=== PATIENT | female | born 1980 | race African-American/Black ===

== ENCOUNTER 2024-11-27 06:21 | Inpatient (IN) | payer OTHER, SELFPAY ==
[2024-11-26 20:27] VITALS: BP 147/89
[2024-11-26 20:44] LABS: % Basophils 0.3 % (0-2); % Eosinophils 4.7 % (0-6); % Immature Granulocytes 0.6 % (0-0.5); % Lymphocytes 10.1 % (20.5-51.1); % Monocytes 8.7 % (1.7-9.3); % Neutrophils 75.6 % (42.2-75.2); Absolute Eosinophils 0.3 10^3/uL (0-0.7); Absolute Lymphocytes 0.7 10^3/uL (1.2-3.4); Absolute Monocytes 0.6 10^3/uL (0.1-0.6); Absolute Neutrophils 5.5 10^3/uL (1.4-6.5); Hemoglobin 9.6 g/dL (12.0-16.0); Mean Corpuscular Hgb 25.9 pg (27.0-31.0); Mean Corpuscular Volume 83.6 fL (81.0-99.0); Mean Platelet Volume 9.8 fL (7.4-10.4); Nucleated Red Blood Cells % 0 %; Platelet Count 388 10^3/uL (130-400); Red Blood Cell Count 3.71 10^6/uL (4.20-5.40); Red Cell Dist. Width 18.9 % (11.5-14.5); White Blood Cell Count 7.2 10^3/uL (4.8-10.8)
[2024-11-26 20:56] LABS: INR 1.24; PT 16.1 Sec (11.4-14.6)
[2024-11-26 20:57] LABS: APTT 35.7 Sec (23.4-35.0)
[2024-11-26 20:59] LABS: ALT (SGPT) 17 U/L (0-35); AST (SGOT) 22 U/L (14-36); Alkaline Phosphatase 131 U/L (38-126); Blood Urea Nitrogen 5 mg/dl (7-17); Calcium 9.4 mg/dl (8.4-10.2); Carbon Dioxide 23 mmol/L (22-30); Chloride 109 mmol/L (98-107); Glucose 129 mg/dl (70-99); Potassium 4.1 mmol/L (3.5-5.1); Sodium 141 mmol/L (135-145); Total Bilirubin 0.7 mg/dl (0.2-1.3); Total Protein 7.9 g/dl (6.3-8.2); eGFR > 60.00
[2024-11-27] VITALS (13 sets, daily range): BP systolic 89–122; BP diastolic 65–91; BMI 49.2; BMI 48.0
--- NOTE | 2024-11-27 00:09 | ED.GENMED ---
History of Present Illness
General
Chief Complaint: Generalized Pain
Source: patient
Time Seen by Provider: 11/26/24 23:48
Nursing documentation reviewed up to this point in time: agreed with
History of Present Illness
History of Present Illness:
Pleasant 44-year-old female presents to the emergency department with generalized pain. She feels that she is having a sickle cell crisis. Patient was diagnosed with sickle cell years ago. She has had multiple crises. She just moved to the area
as her work in [employer] moved her up from [place] to here. She has not established primary care around here. She is on chronic pain medications including Dilaudid 8 mg p.o. daily. She states that this generalized pain began on Monday. It has
progressively been worsening since. Denies fever or chills. Denies headache or blurry vision. Reports no nausea or vomiting. Has a history of avascular necrosis and had bilateral hip replacements.
Review of Systems
Review of Systems
Allergies reviewed?: Yes
All Other Systems: ROS reviewed and negative except as documented in HPI and ROS
Constitutional: Reports no symptoms
EENT: Reports no symptoms
Respiratory: Reports no symptoms
Cardiac: Reports no symptoms
ABD/GI: Reports no symptoms; Denies nausea or vomiting
: Reports no symptoms; Denies flank pain, incontinence, difficulty voiding or urgency
Musculoskeletal: Reports muscle pain
Skin: Reports no symptoms
Neurological: Reports no symptoms
Endocrine: Reports no symptoms
Hematologic/Lymphatic: Reports no symptoms
Psychiatric: Reports no symptoms
Phy Exam
General Physical Exam
General Presentation: well appearing and moderate distress
General Skin: warm and dry
General Habitus: normal and obese
General Mental: alert
General Hydration: appears well hydrated
ENT Exam
ENT Exam: EOMI, pharynx normal, neck supple and normocephalic
Eye Exam
Eye Exam: PERRL, cornea clear and conjunctiva normal
Cardiovascular Exam
Cardiovascular Exam: regular rate/rhythm, no edema, no murmur and normal peripheral pulses
Pulmonary Exam
Pulmonary Exam: lungs clear, no respiratory distress, no rales, no crackles, no rhonchi, no stridor, no wheezing and no cough
Gastrointestinal Exam
Gastrointestinal Exam: normal bowel sounds, non tender, soft, no organomegaly, no pulsatile mass and non distended
Neurological Exam
Neurological Exam: alert, oriented x3, no motor deficits and speech normal
Musculoskeletal Exam
Musculoskeletal Exam: full ROM and no edema
Skin Exam
Skin Exam: normal color, warm/dry, no rash and no petechia
Psychiatric Exam
Psychiatric Exam: normal mood/affect
Course
Orders/Labs/Results
Orders:
Orders
11/26/24 20:37
Type+Screen Urgent
Complete Blood Count/With Diff Urgent
Comprehensive Metabolic Panel Urgent
PTT Urgent
Prothrombin Time Urgent
Reticulocyte Count Urgent
Comment: ADDED
11/26/24 20:45
ABO2 Urgent
BBK Wristband Number:
Associate notified that ABO2 has been ordered: [id number]
Date: 11/26/24
Time: 20:46
Clin Nurse Spec ID: [id number]
11/26/24 23:50
Add On- LAB Urgent
Tests Added?: retic count
11/26/24 23:51
Urinalysis Reflex To Culture Urgent
0.9% Sodium Chloride 1000 ml [Nss] 1,000 ml IV BOLUS
11/27/24 00:09
Diphenhydramine [Benadryl] 25 mg IV NOW STA
HYDROmorphone [Dilaudid] 1 mg IV NOW STA
11/27/24 00:11
Ondansetron Injectable [Zofran] 4 mg IV NOW STA
11/27/24 00:17
CXR2 [CR Chest - 2 Views ] Urgent
Comment:
Reason For Exam: left chest central line confirmation
11/27/24 02:28
HYDROmorphone [Dilaudid] 0.5 mg IV NOW STA
Abnormal Lab Results
11/26/24
20:37
RBC 3.71 L 10^6/uL
(4.20-5.40)
Hgb 9.6 L g/dL
(12.0-16.0)
Hct 31.0 L %
(37.0-47.0)
MCH 25.9 L pg
(27.0-31.0)
MCHC 31.0 L g/dL
(33.0-37.0)
RDW 18.9 H %
(11.5-14.5)
Absolute Lymphs (auto) 0.7 L 10^3/uL
(1.2-3.4)
Immature Gran % 0.6 H %
(0-0.5)
Neutrophils % 75.6 H %
(42.2-75.2)
Lymphocytes % 10.1 L %
(20.5-51.1)
Retic Count 4.0 H %
(0.4-2.8)
PT 16.1 H Sec
(11.4-14.6)
APTT 35.7 H Sec
(23.4-35.0)
Chloride 109 H mmol/L
(98-107)
BUN 5 L mg/dl
(7-17)
Glucose 129 H mg/dl
(70-99)
Alkaline Phosphatase 131 H U/L
(38-126)
11/26/24 20:37
11/26/24 20:37
Vital Signs
Initial and Last Documented VS:
Initial Vital Signs
Temp Pulse Resp BP Pulse Ox
97.8 F 118 20 147/89 94
11/26/24 20:27 11/26/24 20:27 11/26/24 20:27 11/26/24 20:27 11/26/24 20:27
Last Documented Vital Signs
Temp Pulse Resp BP Pulse Ox
97.8 F 67 22 115/65 97
11/26/24 20:27 11/27/24 03:16 11/27/24 03:16 11/27/24 03:06 11/27/24 03:02
*Pulse Oximetry
Patient hypoxic: no
*Critical Care Note
Total Time (30-74mins, 75-104mins- exclusive of procedures): Not Applicable
Update Note
Update Note:
Despite several rounds of pain medication, patient still feeling pain. She will be admitted to the hospitalist service.
ED Attending Note
-
Portions of this chart may have been created with voice recognition software.� Occasional wrong word or��sound alike� substitutions may have occurred due to the inherent limitations of voice recognition software.
Discharge Plan
Departure
Patient Disposition: Admit
Date of Disposition: 11/27/24
Time of Disposition: 03:55
Presentation/result/management discussed w/ accepting MD/DO: Hospitalist
Condition: Fair
Discharge Problem:
Sickle cell crisis
Referrals:
UNKNOWN - PT DOES,NOT KNOW [Family Provider] -
Interventions
Interventions:
*Risk Screen - Suicide Last Done: 11/26/24 20:31
*General Assessment Last Done: 11/26/24 20:31
*Neglect/Abuse Screening Last Done: 11/26/24 20:31
*ED COVID-19 Vaccine History Last Done: 11/26/24 20:31
Discharge Date and Time
Print Language: MONGOLIAN
[2024-11-27] MEDS: NSS 1000 IV ×3 (00:59→17:27)
[2024-11-27] MEDS: DILAUDID 1 MG IV (01:03)
[2024-11-27] MEDS: BENADRYL 25 MG IV (01:07)
[2024-11-27] MEDS: DILAUDID 0.5 MG IV (02:46)
--- NOTE | 2024-11-27 05:31 | HPS.HSE ---
Family Physician
-
Family Physician: NOT KNOW UNKNOWN - PT DOES
Chief Complaint
-
B/L Hip and Low Back Pain x Monday - concern for sickle crisis
History of Present Illness
44yo F with PMH Sickle Cell Disease and Obesity, Hx B/L Hip Replacements (2012) 08/11 AVN who presents to ER for B/L Hip and Low Back Pain x Monday - concern for sickle crisis. She states pain has progressed to 10/10 pain. Has been taking her home PO
8mg dilaudid 3-4x per day without improvement. Has not established care with upper inspector here. Endorses compliance with FA and Hydrea. Pt is from [place] initially and has a Port. States during crises she is on a pain management plan of 2mg IV Q3h
prn Dilaudid. Denies F/C, Dizziness/LH, CP, Palps, SOB, Abd pain, N/V/D/C, Dysuria, Calf or Leg Swelling.
ER course: Pt presents V.S.S.�Hgb 9.6 g/dL, MCV 83.6, Retic 4.0%, PLT 388K, BUN/Cr 5/0.7, BG 129, LFTs wnl, INR 1.24. CXR NAD.��S/P 1.5mg IV dilaudid, 25mg IV Benadryl, 1L NS Bolus in ER.
Medical History
Past Medical History
Past Medical History: Reports Other (Sickle Cell Disease and Obesity)
Past Surgical History: Reports Other (Hx B/L Hip Replacements (2012) 08/11 AVN; No cholecystectomy hx)
Social History
Tobacco: Non-smoker
Alcohol: None
Drug: None
Family History
Family History: Other (Father with sickle cell disease, CAD, HTN, 'and a whole bunch of problems')
Allergies / Home Medications
Allergies reflects when Allergies were last updated in [employer].
Home Medications with original date entered in [employer]
Allergy/Medication List:
Allergies
Allergy/AdvReac Type Severity Reaction Status Date / Time
No Known Allergies Allergy Verified 11/26/24 20:50
Home Medications
folic acid 1 mg tablet 1 mg PO DAILY 11/27/24
hydromorphone 8 mg tablet (Dilaudid) 8 mg PO Q4H PRN pain 11/27/24
hydroxyurea (sickle cell) 1,000 mg tablet 1,000 mg PO BID 11/27/24
Review of Systems
-
A 12 point ROS was completed and negative except as noted: Yes
Physical Exam
Vital Signs
Vital Signs
Temp Pulse Resp BP Pulse Ox
97.8 F 67 22 115/65 97
11/26/24 20:27 11/27/24 03:16 11/27/24 03:16 11/27/24 03:06 11/27/24 03:02
Physical Exam
General: Well Developed, Well Nourished and Other (Uncomfortable. In mild distress 2/2 pain. )
HEENT: NormoCephalic, Moist mucous membranes and Atraumatic
Respiratory: Clear; No Wheezes, Rales, Rhonchi or Crackles
Cardiac: S1/S2 and Regular Rhythm; No Murmur or Rub
GI: Soft, Non Tender, Non Distended and Normal Bowel Sounds; No Organomegaly
Rectal: Deferred by Provider
Genito-urinary: No costovertebral tender; No Madden
Musculoskeletal: No Clubbing, No Cyanosis and Other (Chronic non pitting Le edema with dry/flaking skin to b/l LE)
Skin: Warm and Dry; No Rash
Neuro: Awake, Alert, Oriented, AO x 3 and Nonfocal/grossly intact
Hematologic/Lymphatic: No Lymphadenopathy
Psych: Calm
Laboratory Results
-
11/26/24 20:37
11/26/24 20:37
Laboratory Results
PT 16.1 Sec (11.4-14.6) H 11/26/24 20:37
INR 1.24 11/26/24 20:37
APTT 35.7 Sec (23.4-35.0) H 11/26/24 20:37
Total Bilirubin 0.7 mg/dl (0.2-1.3) 11/26/24 20:37
AST 22 U/L (14-36) 11/26/24 20:37
ALT 17 U/L (0-35) 11/26/24 20:37
Alkaline Phosphatase 131 U/L (38-126) H 11/26/24 20:37
Data Reviewed
-
Diagnostic Radiology: Image Personally Visualized and interpreted
Lab Data: Labs Reviewed by me
Impression/Plan
-
Sickle Cell Crisis / Intractable Low Back / B/L Hip Pain
- Reporting Low Back and B/L Hip Pain since Monday similar to prior sickle cell crises.
- Pt is a transplant from [place], moving here 2.5 weeks ago. Has Right chest port in place
- Retic 4.0%
- S/P 1.5mg IV dilaudid, 25mg IV Benadryl, 1L NS Bolus in ER
- Reports 8mg Q4h prn PO dilaudid (unable to confirm with PDMP). Will continue for severe pain
- Also reports being on a pain management plan of 2mg IV Q3h prn IV dialudid during crisis. Will continue as 2mg IV Q4h prn
- Continue NS @ 100cc/hr, FA, Hydrea
- Does not have upper inspector here at this time. Will consult for further recs.
Normocytic Anemia - Hgb 9.6 g/dL. Pt reports her baseline to be ~'7.9 g/dL.' Unclear whether this represents a true crisis. Trend H&H and transfuse accordingly.
Hx B/L Hip AVN - s/p B/L THR (2012)
Class III Obesity - BMI 49.5. Continue to encourage lifestyle modification with diet/exercise/wtloss.
Diet: Regular
DVT Ppx: Lovenox
Code Status: Full Code
[2024-11-27] MEDS: DILAUDID 2 MG IV ×5 (06:01→23:00)
--- NOTE | 2024-11-27 07:37 | EDRN ---
no nursing provided to this pt- she was transferred to in pt unit at change of shift
[2024-11-27] MEDS: SENOKOT 8.6 MG PO ×2 (07:46→21:48)
[2024-11-27] MEDS: TYLENOL 650 MG PO ×3 (07:46→17:25)
[2024-11-27] MEDS: COLACE 100 MG PO ×2 (07:46→21:48)
[2024-11-27] MEDS: TORADOL 15 MG IV (07:46)
[2024-11-27] MEDS: FOLVITE 1 MG PO (07:47)
--- NOTE | 2024-11-27 08:10 | CON.ONC ---
Impression
Impression
44-year-old female with past medical history of sickle cell disease presenting to [facility] with bilateral hip pain, in sickle cell crisis.
Plan
Plan
� Continue 8 mg every 4 hours as needed p.o. Dilaudid at 2 mg IV every 3 hours as needed Dilaudid during crisis
� Continue normal saline, FA, Hydrea
� Continue to trend H&H. Hemoglobin 7.9 today, reports normal closer to 10. Reticulocyte count currently 4%
Patient History
History of Present Illness
44-year-old female with past medical history of sickle cell disease, obesity with bilateral hip replacements completed in 2012 with complaints of bilateral hip and low back pain since Monday. She states that her last sickle cell crisis was in September
when she lived in [place]. During that time, pain regimen was 2 mg IV every 3 hours as needed Dilaudid. Currently pain is 10 out of 10. At home she takes p.o. 8 mg Dilaudid 3 to 4x a day states that she is compliant with Hydrea. She currently
does not have a primary care physician or second class welder in the area.
She states she has no headaches, nausea, vomiting, chest pain, shortness of breath, abdominal pain or numbness and tingling in extremities.
Past-Medical/Surgical History
Bilateral hip replacements in 2012
Patient Medication
�Medication �Instructions �Recorded �Confirmed �Last Taken �Type
folic acid 1 mg tablet 1 mg PO DAILY 11/27/24 11/27/24 11/26/24 History
hydromorphone 8 mg tablet 8 mg PO Q4H PRN pain 11/27/24 11/27/24 11/26/24 History
(Dilaudid)
hydroxyurea (sickle cell) 1,000 mg 1,000 mg PO BID 11/27/24 11/27/24 11/26/24 20:00 History
tablet
Active Medications
Generic Name Dose Route Start Last Admin
Trade Name Freq PRN Reason Stop Dose Admin
Acetaminophen 650 mg 11/27/24 06:49 11/27/24 07:46
Acetaminophen 325 Mg Tablet PO 12/25/24 06:48 650 mg
Q6 LORY Administration
Albuterol Sulfate 2.5 mg 11/27/24 06:49
Albuterol Nebs 2.5 Mg/3 Ml Ampul INH
R Q4HPRN PRN
shortness of breath
Protocol
Bisacodyl 10 mg 11/27/24 06:49
Bisacodyl 10 Mg Rectal Suppository RECTAL 12/25/24 06:48
[id number] PRN
constipation
Docusate Sodium 100 mg 11/27/24 08:00 11/27/24 07:46
Docusate Sodium 100 Mg Capsule PO 12/25/24 07:59 100 mg
BID LORY Administration
Enoxaparin Sodium 40 mg 11/27/24 18:00
Enoxaparin Sodium 40 Mg/0.4 Ml Syringe SC 12/25/24 17:59
QPM LORY
Folic Acid 1 mg 11/27/24 08:00 11/27/24 07:47
Folic Acid 1 Mg Tablet PO 12/25/24 07:59 1 mg
DAILY LORY Administration
Hydromorphone HCl 2 mg 11/27/24 05:54 11/27/24 06:01
Hydromorphone 1 Mg/Ml Carpuject IV 12/11/24 05:50 2 mg
Q4HPRN PRN Administration
breakthrough pain
Hydromorphone HCl 8 mg 11/27/24 07:01
Hydromorphone 4 Mg Tablet PO 12/11/24 07:00
Q4H PRN
Severe Pain
Hydroxyurea 1,000 mg 11/27/24 08:00
Hydroxyurea 500 Mg Capsule PO 12/25/24 07:59
BID LORY
Sodium Chloride 1,000 mls @ 100 mls/hr 11/27/24 06:49 11/27/24 07:46
Nss IV 11/28/24 06:48 1,000 mls
.Q10H LORY Administration
Ketorolac Tromethamine 15 mg 11/27/24 06:49 11/27/24 07:46
Ketorolac 15 Mg/Ml Injection IV 12/02/24 06:48 15 mg
Q6HPRN PRN Administration
moderate pain
Ondansetron HCl 4 mg 11/27/24 06:49
Ondansetron 4 Mg/2 Ml Vial IV 12/25/24 06:48
Q6HPRN PRN
nausea and vomiting
Polyethylene Glycol 17 grams 11/27/24 06:49
Polyethylene Glycol Powder 17 Grams Packet PO 12/25/24 06:48
DAILYPRN PRN
constipation
Sennosides 8.6 mg 11/27/24 08:00 11/27/24 07:46
Sennosides (Senokot) 8.6 Mg Tablet PO 12/25/24 07:59 8.6 mg
BID LORY Administration
Sodium Chloride 0 flush 11/27/24 06:00
Sodium Chloride 0.9% (Flush) Syringe IV 12/25/24 05:59
PER PROTOCOL LORY
Review of Systems
-
History Source: Patient
Constitutional: Reports Other (Pain)
Respiratory: Reports No Symptoms
Cardiac: Reports No Symptoms
GI: Reports No Symptoms
: Reports No Symptoms
Musculoskeletal: Reports No Symptoms
Psych: Reports No Symptoms
Physical Exam
-
General: Well Developed, Well Nourished, Appears in Distress, Pain, Conversant and Morbidly Obese
Pulmonary: Clear
GI: Soft
Musculoskeletal: No Clubbing and No Cyanosis
Skin: Warm and Dry
Psych: Calm
Labs
Lab Results
WBC 7.2 10^3/uL (4.8-10.8) 11/26/24 20:37
RBC 3.71 10^6/uL (4.20-5.40) L 11/26/24 20:37
Hgb 9.6 g/dL (12.0-16.0) L 11/26/24 20:37
Hct 31.0 % (37.0-47.0) L 11/26/24 20:37
MCV 83.6 fL (81.0-99.0) 11/26/24 20:37
MCH 25.9 pg (27.0-31.0) L 11/26/24 20:37
MCHC 31.0 g/dL (33.0-37.0) L 11/26/24 20:37
RDW 18.9 % (11.5-14.5) H 11/26/24 20:37
Plt Count 388 10^3/uL (130-400) 11/26/24 20:37
MPV 9.8 fL (7.4-10.4) 11/26/24 20:37
Abs Immat Gran (auto) 0.0 10^3/uL (0-0.05) 11/26/24 20:37
Absolute Neuts (auto) 5.5 10^3/uL (1.4-6.5) 11/26/24 20:37
Absolute Lymphs (auto) 0.7 10^3/uL (1.2-3.4) L 11/26/24 20:37
Absolute Monos (auto) 0.6 10^3/uL (0.1-0.6) 11/26/24 20:37
Absolute Eos (auto) 0.3 10^3/uL (0-0.7) 11/26/24 20:37
Absolute Basos (auto) 0.0 10^3/uL (0-0.2) 11/26/24 20:37
Immature Gran % 0.6 % (0-0.5) H 11/26/24 20:37
Neutrophils % 75.6 % (42.2-75.2) H 11/26/24 20:37
Lymphocytes % 10.1 % (20.5-51.1) L 11/26/24 20:37
Monocytes % 8.7 % (1.7-9.3) 11/26/24 20:37
Eosinophils % 4.7 % (0-6) 11/26/24 20:37
Basophils % 0.3 % (0-2) 11/26/24 20:37
Creatinine 0.7 mg/dL (0.6-1.0) 11/26/24 20:37
Vital Signs
Vital Signs
Temp Pulse Resp BP Pulse Ox
98.1 F 80 17 121/77 98
11/27/24 07:55 11/27/24 07:55 11/27/24 07:55 11/27/24 07:55 11/27/24 07:55
[2024-11-27] MEDS: HYDREA 1000 MG PO ×2 (09:56→21:49)
--- NOTE | 2024-11-27 10:48 | W.PN.HOSP.TC ---
Today's Communication/Plan
-
No evidence for distress
No complaints suggestive of acute respiratory issue or infection
Hemodynamically stable with stable respiratory status
Continue IV hydration
Attempt to wean off IV opiates back to preadmission oral regimen
Monitor hemoglobin, LFTs, LDH
Hematology input appreciated
Assessment / Plan
Assessment / Plan
Impression/Plan
-
Sickle Cell Crisis / Intractable Low Back / B/L Hip Pain
- Reporting Low Back and B/L Hip Pain since Monday similar to prior sickle cell crises.
- Pt is a transplant from [place], moving here 2.5 weeks ago. Has Right chest port in place
- Retic 4.0%
- S/P 1.5mg IV dilaudid, 25mg IV Benadryl, 1L NS Bolus in ER
- Reports 8mg Q4h prn PO dilaudid (unable to confirm with PDMP). Will continue for severe pain
- Also reports being on a pain management plan of 2mg IV Q3h prn IV dialudid during crisis. Will continue as 2mg IV Q4h prn
- Continue NS @ 100cc/hr, FA, Hydrea
- Does not have sanitary chemist here at this time. Will consult for further recs.
Normocytic Anemia - Hgb 9.6 g/dL. Pt reports her baseline to be ~'7.9 g/dL.' Unclear whether this represents a true crisis. Trend H&H and transfuse accordingly.
Hx B/L Hip AVN - s/p B/L THR (2012)
Class III Obesity - BMI 49.5. Continue to encourage lifestyle modification with diet/exercise/wtloss.
Anticipated Discharge: 24 - 48 hours
Subjective/Interval History
-
Date of Service: November 27, 2024
Objective Data
-
Labs:
Laboratory Results
11/27/24
10:10
WBC Pending
Hgb Pending
Hct Pending
Plt Count Pending
Sodium Pending
Potassium Pending
Chloride Pending
Carbon Dioxide Pending
BUN Pending
Creatinine Pending
Glucose Pending
Calcium Pending
Vital Signs:
Vital Signs
Temp Pulse Resp BP Pulse Ox
98.1 F 80 17 121/77 98
11/27/24 07:55 11/27/24 07:55 11/27/24 07:55 11/27/24 07:55 11/27/24 07:55
Physical Exam
-
General: Well Developed and No Apparent Distress
HEENT: Normocephalic, Atraumatic and Moist Mucous Membranes
Respiratory: Clear to Auscultation
Cardiac: Regular Rhythm and S1/S2; Negative Murmur, Rub or Gallop
GI: Soft, Nontender, Nondistended and Normal Bowel Sounds; Negative Organomegaly
Rectal: Deferred by Provider
Musculoskeletal: No Clubbing, No Cyanosis and No Edema
Skin: Negative Rash
Neuro: Nonfocal/Grossly Intact
[2024-11-27 11:33] LABS: Blood Urea Nitrogen 3 mg/dl (7-17); Calcium 8.9 mg/dl (8.4-10.2); Carbon Dioxide 25 mmol/L (22-30); Chloride 110 mmol/L (98-107); Estimated Creatinine Clearance > 125 ml/min; Glucose 121 mg/dl (70-99); LDH 217 U/L (120-246); Potassium 4.3 mmol/L (3.5-5.1); Sodium 142 mmol/L (135-145); eGFR > 60.00
[2024-11-27] MEDS: DILAUDID 8 MG PO ×3 (11:36→21:47)
[2024-11-27 12:18] LABS: % Basophils 0.3 % (0-2); % Eosinophils 5.2 % (0-6); % Immature Granulocytes 0.2 % (0-0.5); % Monocytes 10.4 % (1.7-9.3); % Neutrophils 71.9 % (42.2-75.2); Absolute Eosinophils 0.3 10^3/uL (0-0.7); Absolute Lymphocytes 0.7 10^3/uL (1.2-3.4); Absolute Monocytes 0.6 10^3/uL (0.1-0.6); Absolute Neutrophils 4.1 10^3/uL (1.4-6.5); Hematocrit 28.5 % (37.0-47.0); Hemoglobin 8.8 g/dL (12.0-16.0); Mean Corp Hgb Conc. 30.9 g/dL (33.0-37.0); Mean Corpuscular Hgb 26.3 pg (27.0-31.0); Mean Corpuscular Volume 85.3 fL (81.0-99.0); Mean Platelet Volume 10.8 fL (7.4-10.4); Nucleated Red Blood Cells % 0 %; Platelet Count 404 10^3/uL (130-400); Red Blood Cell Count 3.34 10^6/uL (4.20-5.40); White Blood Cell Count 5.8 10^3/uL (4.8-10.8)
--- NOTE | 2024-11-27 16:33 | CM ---
Alert awake oriented patient who lives alone with 0 steps to enter her apartment.She said she has no friends or family near here. She is from [place]. She is independent in [employer] [facility] [employer].She does drive. She has no cell phone .She has no
DME. Asked pt about insurance she said she is waiting for job benefits to start. [facility].
No VN in past . No SNF hx
Pharmacy [facility]
PCP None She said she will not need any meds
PLAN Home with no needs
--- NOTE | 2024-11-27 17:44 | PTCARENOTE ---
Pt arrived to floor from ED via stretcher. Ambulated to unit [facility] where she remained throughout shift. PRN Dilaudid given as able. Pt stating 9/10 pain throughout whole body. Refused Lovenox injection. Education on purpose of anticoagulation
provided.
--- NOTE | 2024-11-27 21:55 | PTCARENOTE ---
Assessed pt's pain level and offered PO pain medication. Pt states 'I will just wait for IV'. Explained that PO pain meds are to be taken first and the IV is for breakthrough pain. Pt started yelling at RN, saying 'then what am I doing here, the
oral meds aren't working, I want to talk to a doctor'. Instructed that the plan of care is being followed per doctor orders. Continued yelling and repeating self, talking in circles. [facility] covering house contacted via TT. Pt took PO pain meds at
this time.
[2024-11-28] MEDS: TYLENOL 650 MG PO ×3 (00:14→11:10)
[2024-11-28] MEDS: DILAUDID 8 MG PO ×3 (02:22→11:10)
[2024-11-28] MEDS: NSS 1000 IV (02:58)
[2024-11-28] MEDS: DILAUDID 2 MG IV ×2 (03:32→08:01)
[2024-11-28] MEDS: FOLVITE 1 MG PO (07:09)
[2024-11-28] MEDS: SENOKOT 8.6 MG PO (07:09)
[2024-11-28] MEDS: COLACE 100 MG PO (07:09)
[2024-11-28] MEDS: HYDREA 1000 MG PO (07:10)
[2024-11-28 07:22] LABS: % Basophils 0.2 % (0-2); % Eosinophils 5.4 % (0-6); % Immature Granulocytes 0.3 % (0-0.5); % Lymphocytes 12.3 % (20.5-51.1); % Monocytes 8.2 % (1.7-9.3); % Neutrophils 73.6 % (42.2-75.2); Absolute Eosinophils 0.3 10^3/uL (0-0.7); Absolute Lymphocytes 0.8 10^3/uL (1.2-3.4); Absolute Monocytes 0.5 10^3/uL (0.1-0.6); Absolute Neutrophils 4.5 10^3/uL (1.4-6.5); Hematocrit 27.5 % (37.0-47.0); Hemoglobin 8.3 g/dL (12.0-16.0); Mean Corp Hgb Conc. 30.2 g/dL (33.0-37.0); Mean Corpuscular Hgb 25.6 pg (27.0-31.0); Mean Corpuscular Volume 84.9 fL (81.0-99.0); Mean Platelet Volume 9.9 fL (7.4-10.4); Nucleated Red Blood Cells % 0 %; Platelet Count 376 10^3/uL (130-400); Red Blood Cell Count 3.24 10^6/uL (4.20-5.40); White Blood Cell Count 6.1 10^3/uL (4.8-10.8)
[2024-11-28 07:45] LABS: Blood Urea Nitrogen 6 mg/dl (7-17); Calcium 8.7 mg/dl (8.4-10.2); Carbon Dioxide 24 mmol/L (22-30); Chloride 112 mmol/L (98-107); Estimated Creatinine Clearance > 125 ml/min; Glucose 100 mg/dl (70-99); LDH 194 U/L (120-246); Potassium 4.3 mmol/L (3.5-5.1); Sodium 141 mmol/L (135-145); eGFR > 60.00
[2024-11-28 08:01] VITALS: BP 114/71
--- NOTE | 2024-11-28 09:50 | W.PN.ONC2 ---
Today's Communication / Plan
-
Goal to transition to home p.o. regimen prior to discharge. likely DC today
Follow-up with hematology outpatient
Impression
Impression
44-year-old female with past medical history of sickle cell disease presenting to [facility] with bilateral hip pain, in sickle cell crisis.
Plan
Plan
� Continue 8 mg every 4 hours as needed p.o. Dilaudid at 2 mg IV every 3 hours as needed Dilaudid during crisis
� Continue normal saline, FA, Hydrea
Subjective/Objective
Subjective
Patient complains of ongoing pain despite current pain regimen. She is able to tolerate food and water, but feels due to pain, hunger is supressed.
Vital Signs:
Vital Signs
Temp Pulse Resp BP Pulse Ox
98.4 F 69 16 114/71 97
11/28/24 08:01 11/28/24 08:01 11/28/24 08:01 11/28/24 08:01 11/28/24 08:01
Lab Results:
Laboratory Data
WBC 6.1 10^3/uL (4.8-10.8) 11/28/24 07:05
Hgb 8.3 g/dL (12.0-16.0) L 11/28/24 07:05
Plt Count 376 10^3/uL (130-400) 11/28/24 07:05
PT 16.1 Sec (11.4-14.6) H 11/26/24 20:37
INR 1.24 11/26/24 20:37
APTT 35.7 Sec (23.4-35.0) H 11/26/24 20:37
eGFR > 60.00 11/28/24 07:06
Physical Exam
General: Alert and oriented, conversant, in slight distress due to pain from sickle cell crisis
Pulmonary: Clear
GI: Soft
Neuro: Other (Pain)
Review of Systems
Review of Systems
All reviewed and negative unless otherwise stated
Constitutional: Reports Other (Pain)
--- NOTE | 2024-11-28 11:03 | W.DS.TRANS ---
DC Summary - Chief Solution Architect
-
Discharge Instructions:
Discharge Diagnosis/Procedures Chronic pain.
Diet Regular
Instructions:
Stand-Alone Forms:
Changes to Home Medications: No
Discharge Medications:
DC Medications w/original date entered in [employer]
folic acid 1 mg tablet 1 mg PO DAILY 11/27/24
hydromorphone 8 mg tablet (Dilaudid) 8 mg PO Q4H PRN pain 11/27/24
hydroxyurea (sickle cell) 1,000 mg tablet 1,000 mg PO BID 11/27/24
Home Medication Changes
Pending Results: No
--- NOTE | 2024-11-28 12:29 | PTCARENOTE ---
Pt with discharge orders. Instructions reviewed with patient. Pt refused vital signs being taken prior to discharge. Stating she didn't have a ride home. $10 given to patient by case management for caden gibbs. Pt insisted on ambulating from hospital.
--- NOTE | 2024-11-28 12:41 | CM ---
Plan: discharge to home today;no needs. Patient reported she did not have transport home and requested voucher or bus token.
Withe permission from Fruit Receiver, comp field case manager provided $10.00 [place] to pay for public transportation home
== END 2024-11-28 12:47 | disposition home or self-care (01) | DRG 812 ==
LOC: 1 ACUTE 06:21
PROVIDERS: Student in an Organized Health Care Education/Training Program; ADMITTING PHYSICIAN Internal Medicine; ATTENDING PHYSICIAN Internal Medicine; EMERGENCY PHYSICIAN Student in an Organized Health Care Education/Training Program; OTHER PHYSICIAN Internal Medicine Hematology & Oncology
DX: D57.00 Hb-SS disease with crisis, unspecified (principal); Z68.42 Body mass index [BMI] 45.0-49.9, adult; G89.29 Other chronic pain; E66.813 Obesity, class 3; Z60.2 Problems related to living alone; Z96.643 Presence of artificial hip joint, bilateral; M54.50 Low back pain, unspecified; D63.8 Anemia in other chronic diseases classified elsewhere; M25.552 Pain in left hip; M25.551 Pain in right hip; Z83.2 Family history of diseases of the blood and blood-forming organs and certain disorders involving the immune mechanism; Z82.49 Family history of ischemic heart disease and other diseases of the circulatory system; Z95.828 Presence of other vascular implants and grafts
CPT/HCPCS: 71046; 80048; 80053; 83615; 85025; 85045; 85610; 85730; 86850; 86900; 86901; 96361; 96374; 96375; 96376; 99284